=== PATIENT | female | born 1940 | race Caucasian/White ===

== ENCOUNTER 2017-07-27 05:31 | Inpatient (IN) | payer MEDICARE, BC ==
[2017-07-27] MEDS ORDERED: Celecoxib 200 MG Cap PO ONE (06:00)
[2017-07-27] MEDS ORDERED: Acetaminophen 500 MG Tab PO ONE (06:00)
[2017-07-27] MEDS ORDERED: Dextrose 5%-Lactated Ringers 1,000 ML IV SCH (06:30)
[2017-07-27] MEDS ORDERED: Bupivacaine 0.5%/EPINEPHrine 1:200,000 50 ML MDV ONE (06:41)
[2017-07-27] MEDS ORDERED: Meropenem 500 MG SDV ONE (06:41)
[2017-07-27] MEDS ORDERED: Succinylcholine 200 MG/10 ML MDV ONE (07:09)
[2017-07-27] MEDS ORDERED: Dexamethasone 4 MG/ML SDV ONE (07:09)
[2017-07-27] MEDS ORDERED: Propofol 200 MG/20 ML SDV ONE (07:09)
[2017-07-27] MEDS ORDERED: Ondansetron 4 MG/2 ML SDV ONE (07:09)
[2017-07-27] MEDS ORDERED: Neostigmine Methylsulfate 1 MG/ML 5 ML Syringe ONE (07:09)
[2017-07-27] MEDS ORDERED: Rocuronium 50 MG/5 ML Vial ONE (07:09)
[2017-07-27] MEDS ORDERED: Glycopyrrolate 0.2 MG/ML 5 ML MDV ONE (07:09)
[2017-07-27] MEDS ORDERED: ceFAZolin 2 GM in Premix Bag 1 BAG IV ONE ×2 (07:15→07:30)
[2017-07-27] MEDS ORDERED: ePHEDrine 50 MG/ML SDV ONE (08:30)
[2017-07-27] MEDS ORDERED: HYDROmorphone/Normal Saline 15 MG/30 ML PCA IV PRN (08:42)
[2017-07-27] MEDS ORDERED: Naloxone 0.4 MG/ML SDV IV PRN (08:44)
[2017-07-27] MEDS ORDERED: Ketorolac 60 MG/2 ML SDV ONE (09:23)
[2017-07-27] MEDS ORDERED: Ondansetron 4 MG/2 ML SDV IV PRN (10:38)
[2017-07-27] MEDS ORDERED: Acetaminophen/HYDROcodone 325-5 MG Tab PO PRN (10:40)
[2017-07-27] MEDS: Dextrose 5%-Lactated Ringers 1,000 ML IV SCH ×2 (10:56→17:32)
[2017-07-27] MEDS: ceFAZolin 2 GM in Sodium Chloride 0.9% 50 ML IV SCH ×2 (15:12→22:24)
[2017-07-27] MEDS ORDERED: Lactated Ringers 500 ML IV ONE (18:41)
[2017-07-28] MEDS: Dextrose 5%-Lactated Ringers 1,000 ML IV SCH (01:35)
[2017-07-28] MEDS: ceFAZolin 2 GM in Sodium Chloride 0.9% 50 ML IV SCH (06:03)
[2017-07-28] MEDS ORDERED: Dextrose 5%-Lactated Ringers 1,000 ML IV SCH (07:10)
--- NOTE | 2017-07-28 08:52 | DISCH ---
ADMISSION DIAGNOSES: 1. Recurrent umbilical hernia. 2. Recurrent incarcerated incisional hernia. 3. Essential hypertension. 4. Glucose intolerance, prediabetic. 5. Hearing loss, sensorineural. DISCHARGE DIAGNOSES: Repair of recurrent umbilical hernia and recurrent incarcerated incisional hernia with mesh, date 07/27/2017. Surgeon, Moises Butler MD. HISTORY: Chanel Ny is a 77-year-old female with a recurrent umbilical and recurrent incarcerated incisional hernia. After preoperative evaluation and discussion of possible risks and possible complications, she wished to proceed with surgical procedure. HOSPITAL COURSE: Chanel had her surgery on 07/27/2017. She had no surgical complications. On postop day #1, her activity was good. Oral intake adequate. Pain controlled. Vital signs were stable. She was ready to be discharged to home. PHYSICAL EXAMINATION: GENERAL: Chanel Ny is a pleasant 77-year-old female. She is alert and orientated. SKIN: Warm and dry. Color is good. VITAL SIGNS: Height is 5 feet 4 inches. Weight is 144 pounds. TPR 98.8, 78, 16, blood pressure 132/75. HEENT: Negative. NECK: Supple. HEART: Regular rate and rhythm. LUNGS: Clear. ABDOMEN: Reveals a dressing that is dry and intact. Abdominal binder is on. EXTREMITIES: Without peripheral edema. DISPOSITION: Discharged to home. CONDITION: Stable and improving. FOLLOWUP APPOINTMENT: With Alda Moreno PA-C, at [facility] on 08/06/2017 at 9 a.m. DISCHARGE MEDICATIONS: Home medications; Pawling 5/325 mg 1 to 2 q.4 hours p.r.n. pain, #30. She is to resume her home medications of multivitamin 1 daily and triamterene/hydrochlorothiazide 37.5/25 one tablet daily. DISCHARGE DIET: Regular diet as tolerated. ACTIVITY: No lifting greater than 10 pounds for 6 weeks. Driving after discharge, do not drive until 08/02/2017. Must also be off pain meds. Shower/bathing, may shower on 08/06/2017, take off dressing at that time and replace a pressure dressing of folded up washcloth and place over hernia sites and wear abdominal binder over the pressure dressing, do this for 1 month. DISCHARGE INSTRUCTIONS: Notify provider if any fever, swelling, redness, drainage, nausea, or vomiting. Special instructions; use incentive spirometer 10 times every hour while awake.
[2017-07-28] MEDS ORDERED: Hydrochlorothiazide/Triamterene 25-37.5 MG Cap PO SCH (09:00)
[2017-07-28 10:14] VITALS: BP 111/81
--- NOTE | 2017-08-02 08:52 | OR ---
DATE OF PROCEDURE: 07/27/2017 PREOPERATIVE DIAGNOSIS: Recurrent periumbilical hernia. POSTOPERATIVE DIAGNOSES: 1. Recurrent umbilical hernia. 2. Recurrent incarcerated incisional hernia. OPERATIVE PROCEDURE: 1. Diagnostic laparoscopy with: a. Repair of recurrent umbilical hernia with mesh (85706). b. Repair of recurrent incarcerated incisional hernia with mesh ([id number]). ANESTHESIA: General. INDICATION FOR PROCEDURE: This is a 77-year-old presenting with a progressively symptomatic periumbilical hernia. This has been repaired in the past. The plan is to proceed with a diagnostic laparoscopy and laparotomy if necessary, and repair of the hernia with mesh. Potential risks including bleeding, infection, injury to underlying viscera, problems with the hernia recurring or the mesh becoming infected were all reviewed, and the patient wishes to proceed. DETAILS OF THE PROCEDURE: The patient was taken to the operating room and placed in the supine position. After general endotracheal anesthesia was induced, a Bates catheter was inserted and the abdomen prepped and draped. In the left lateral abdomen, a transverse incision was made and the peritoneal cavity entered under direct vision with an Optiview trocar, inflated to 15 mmHg pressure with CO2. No underlying trocar insertion site injuries were seen, upon re-insertion of the camera. Following this, eventually four 5-mm trocars were placed, 2 on the left and 2 on the right side, and the abdomen examined. The patient had 2 hernias, both of which had some sutures in them, indicating previous repairs had been undertaken at those locations. The umbilical hernia was not incarcerated. The incisional hernia, which lay just adjacent to the umbilical hernia, did have incarcerated omentum within it, but it was dissected free with aid of Harmonic scalpel along with external pressure. Once the incarcerated components were eliminated, a small part of each of the sacs was sent to facilitate adherence of the subcutaneous tissue to the mesh. The falciform ligament was then taken down up to over the midportion of the liver, and then a Ventralight ST mesh with the positioning system balloon was selected. A 20.2 cm pyramid lake sized mesh was used. This was soaked in antibiotic-containing saline solution and then rolled up and placed in an intraperitoneal location. A small stab wound over the center of the 2 hernias was then made and the inflation catheter was then grasped and pulled up through the abdominal wall. The balloon was then inflated, thus pushing the mesh up against the abdominal wall. The mesh was then initially affixed with a row of absorbable tacking screws along its outer circumference, and then an additional row of tacks was then placed more centrally around the area of herniation. At this point, the balloon was deflated and withdrawn. Good fixation of the mesh was confirmed in all areas and the 12 mm trocar site was then closed with 0 Vicryl stitch at the fascia level, and upon removal of the trocars, each of the incisions were closed with some 4-0 Vicryl skin stitch. Dressing was applied. The patient was taken to the recovery room in satisfactory condition. Moises Butler MD /[id number]
== END 2017-07-28 13:00 | disposition home or self-care (01) | DRG 354 ==
LOC: JP.SDS 05:31 → JP.MS 05:31 → EDSTATUS 09:00 → JP.MS 09:15
PROVIDERS: ADMIT Surgery; ATTEND Surgery
PROC: 0WUF4JZ Supplement Abdominal Wall with Synthetic Substitute, Percutaneous Endoscopic Approach (ICD-10-PCS; principal; 2017-07-27)
DX: K42.9 Umbilical hernia without obstruction or gangrene (principal); K43.0 Incisional hernia with obstruction, without gangrene; I10 Essential (primary) hypertension; R73.03 Prediabetes; H90.5 Unspecified sensorineural hearing loss; Z79.899 Other long term (current) drug therapy
CPT/HCPCS: 36415; 51798; 80053; 83735; 84100; 85027; 88302; 94762; A9270-GY; C1781; J0330; J0690; J1100; J1170; J1885; J2185; J2405; J2704; J2710; J3010; J7042; J7050; J7120

== ENCOUNTER 2022-03-13 21:33 | Emergency (ER) | payer MEDICARE, BC ==
[2022-03-13 21:50] VITALS: BP 151/92
[2022-03-13 22:42] VITALS: PULSE 60
== END 2022-03-13 22:43 | disposition home or self-care (01) ==
LOC: JP.ED 21:33
DX: N39.0 Urinary tract infection, site not specified (principal); I10 Essential (primary) hypertension
CPT/HCPCS: 81001; 87086; 87186; 99282; 99283

== ENCOUNTER 2023-12-12 11:45 | Emergency (ER) | payer MEDICARE, BC ==
[2023-12-12 12:32] LABS: BASOPHILS ABSOLUTE AUTO 0.06 K/uL (0.00-0.10); BASOPHILS PERCENT AUTO 1.1 % (0.1-1.3); EOSINOPHILS ABSOLUTE AUTO 0.13 K/uL (0.00-0.40); EOSINOPHILS PERCENT AUTO 2.5 % (0.0-5.4); HEMATOCRIT 40.8 % (34.3-46.0); HEMOGLOBIN 13.9 g/dL (11.2-15.5); IMMATURE GRAN ABSOLUTE AUTO 0.03 K/uL (0.00-0.23); IMMATURE GRAN PERCENT AUTO 0.6 % (0.0-0.7); LYMPHOCYTES ABSOLUTE AUTO 1.69 K/uL (0.8-3.3); LYMPHOCYTES PERCENT AUTO 31.9 % (11.4-47.7); MEAN CORPUSCULAR HEMOGLOBIN 29.8 pg (31.6-35.5); MEAN CORPUSCULAR HGB CONC 34.1 g/dL (31.6-35.5); MEAN CORPUSCULAR VOLUME 87.4 fL (81.4-99.0); MONOCYTES ABSOLUTE AUTO 0.82 K/uL (0.20-0.90); MONOCYTES PERCENT AUTO 15.5 % (3.3-12.6); NEUTROPHILS ABSOLUTE AUTO 2.57 K/uL (1.0-7.6); NEUTROPHILS PERCENT AUTO 48.4 % (40.0-78.1); PLATELET COUNT,PLT 197 K/uL (130-375); RED BLOOD CELL COUNT 4.67 M/uL (3.77-5.24); WHITE BLOOD CELL COUNT,WBC 5.3 K/uL (3.2-11.0)
[2023-12-12 12:58] LABS: INR 1.2; PROTHROMBIN TIME 11.6 sec (9.2-10.6)
[2023-12-12 13:06] LABS: ALANINE AMINOTRANSFERASE,ALT 21 U/L (12-78); ALBUMIN 3.5 g/dL (3.4-5.0); ALKALINE PHOSPHATASE 51 U/L (46-116); ASPARTATE AMNIOTRANSFERASE,AST 23 U/L (15-37); BILIRUBIN TOTAL 1.5 mg/dL (0.2-1.0); BLOOD UREA NITROGEN,BUN 18 mg/dL (7-18); CALCIUM 8.8 mg/dL (8.5-10.1); CARBON DIOXIDE,CO2 33 mmol/L (21-32); CHLORIDE,CL 98 mmol/L (100-108); ESTIMATED GFR 55 mL/min (>60); GLUCOSE RANDOM 148 mg/dL (74-106); POTASSIUM,K 3.7 mmol/L (3.6-5.2); SODIUM,NA 137 mmol/L (140-148)
[2023-12-12 13:07] LABS: ANION GAP 9.7 mmol/L (5.0-14.0)
[2023-12-12 13:08] LABS: TROPONIN I HIGH SENSITIVITY 62.6 pg/mL (<=60.3)
[2023-12-12 14:05] VITALS: BP 175/86; PULSE 77
== END 2023-12-12 15:06 | disposition home or self-care (01) ==
LOC: JP.ED 11:45
DX: S00.03XA Contusion of scalp, initial encounter (principal); H66.91 Otitis media, unspecified, right ear; I95.1 Orthostatic hypotension; I10 Essential (primary) hypertension; Z79.899 Other long term (current) drug therapy; W18.30XA Fall on same level, unspecified, initial encounter; Y92.512 Supermarket, store or market as the place of occurrence of the external cause
CPT/HCPCS: 36415; 70450; 71045; 71045-26; 80053; 80307; 84145; 84484; 85025; 85610; 93005; 93010; 99284

== ENCOUNTER 2024-11-05 09:31 | Emergency (ER) | payer MEDICARE, BC ==
[2024-11-05 09:44] VITALS: BP 164/104
[2024-11-05 10:04] LABS: BASOPHILS ABSOLUTE AUTO 0.06 K/uL (0.00-0.10); BASOPHILS PERCENT AUTO 0.9 % (0.1-1.3); EOSINOPHILS ABSOLUTE AUTO 0.05 K/uL (0.00-0.40); EOSINOPHILS PERCENT AUTO 0.8 % (0.0-5.4); HEMATOCRIT 41.2 % (34.3-46.0); HEMOGLOBIN 14.7 g/dL (11.2-15.5); IMMATURE GRAN ABSOLUTE AUTO 0.04 K/uL (0.00-0.23); IMMATURE GRAN PERCENT AUTO 0.6 % (0.0-0.7); LYMPHOCYTES ABSOLUTE AUTO 1.18 K/uL (0.8-3.3); LYMPHOCYTES PERCENT AUTO 18.1 % (11.4-47.7); MEAN CORPUSCULAR HEMOGLOBIN 31.1 pg (31.6-35.5); MEAN CORPUSCULAR HGB CONC 35.7 g/dL (31.6-35.5); MEAN CORPUSCULAR VOLUME 87.3 fL (81.4-99.0); MONOCYTES ABSOLUTE AUTO 0.87 K/uL (0.20-0.90); MONOCYTES PERCENT AUTO 13.3 % (3.3-12.6); NEUTROPHILS ABSOLUTE AUTO 4.32 K/uL (1.0-7.6); NEUTROPHILS PERCENT AUTO 66.3 % (40.0-78.1); PLATELET COUNT,PLT 200 K/uL (130-375); RED BLOOD CELL COUNT 4.72 M/uL (3.77-5.24); WHITE BLOOD CELL COUNT,WBC 6.5 K/uL (3.2-11.0)
[2024-11-05 10:27] LABS: ANION GAP 9.7 mmol/L (5.0-14.0); CALCIUM 9.6 mg/dL (8.5-10.1); CREATININE 1.1 mg/dL (0.6-1.0); EST CRCL DRUG DOSING (CG) 31.55 mL/min; POTASSIUM,K 3.7 mmol/L (3.6-5.2)
[2024-11-05 10:28] LABS: TROPONIN I HIGH SENSITIVITY 80.7 pg/mL (<=60.3)
[2024-11-05] MEDS: Metoprolol Succinate 25 MG Tab.ER PO ONE (12:25)
[2024-11-05 12:26] VITALS: PULSE 93
== END 2024-11-05 12:42 | disposition home or self-care (01) ==
LOC: JP.ED 09:31
DX: I47.10 Supraventricular tachycardia, unspecified (principal); R55 Syncope and collapse; I10 Essential (primary) hypertension; Z90.49 Acquired absence of other specified parts of digestive tract
CPT/HCPCS: 36415; 70450; 72125; 76377; 80048; 84484; 85025; 99285; A9270

== ENCOUNTER 2025-04-09 09:30 | Inpatient (IN) | payer MEDICARE, BC ==
[2025-04-09] MEDS ORDERED: fentaNYL 100 MCG/2 ML SDV ONE (10:05)
[2025-04-09] MEDS ORDERED: Midazolam 1 MG/ML 2 ML SDV ONE (10:05)
[2025-04-09] MEDS ORDERED: Propofol 200 MG/20 ML SDV ONE (10:05)
[2025-04-09] MEDS ORDERED: Bupivacaine 0.5% 50 ML MDV ONE (10:49)
[2025-04-09] MEDS: Lactated Ringers 1,000 ML IV SCH (11:01)
[2025-04-09] MEDS: Nozin Nasal Sanitizer NASBOTH SCH ×2 (11:01→21:05)
[2025-04-09] MEDS: ceFAZolin 2 GM in Premix Bag 1 BAG IV ONE (12:45)
[2025-04-09] MEDS ORDERED: Loratadine 10 MG Tab PO PRN (12:50)
[2025-04-09] MEDS ORDERED: Magnesium Hydroxide 400 MG/5 ML Susp 30 ML Cup PO PRN (12:52)
[2025-04-09] MEDS ORDERED: Morphine 2 MG/ML SYRINGE IV PRN (12:52)
[2025-04-09] MEDS ORDERED: Ondansetron 4 MG/2 ML SDV IVPUSH PRN (12:52)
[2025-04-09] MEDS ORDERED: Docusate Sodium 100 MG Cap PO PRN (12:52)
[2025-04-09] MEDS ORDERED: ePHEDrine 50 MG/ML SDV ONE (13:25)
[2025-04-09] MEDS: Sodium Chloride 0.9% 1,000 ML IV SCH (15:36)
[2025-04-09] MEDS: Acetaminophen 325 MG Tab PO SCH (16:14)
[2025-04-09] MEDS: oxyCODONE 5 MG Tab PO PRN (19:23)
[2025-04-09] MEDS: ceFAZolin 2 GM in Premix Bag 1 BAG IV SCH (21:02)
[2025-04-09] MEDS: Ketotifen 0.025% Ophth Soln 5 ML Bottle EYEBOTH SCH (21:06)
[2025-04-09] MEDS: Metoprolol Succinate 25 MG Tab.ER PO SCH (21:31)
[2025-04-09] MEDS: Sodium Chloride 0.9% 500 ML IV ONE (21:35)
[2025-04-09] MEDS: METOPROLOL SUCCINATE 25 MG PO SCH (22:07)
[2025-04-10 05:58] LABS: HEMATOCRIT 27.5 % (34.3-46.0); HEMOGLOBIN 9.3 g/dL (11.2-15.5); MEAN CORPUSCULAR HEMOGLOBIN 31.1 pg (31.6-35.5); MEAN CORPUSCULAR HGB CONC 33.8 g/dL (31.6-35.5); RED BLOOD CELL COUNT 2.99 M/uL (3.77-5.24); WHITE BLOOD CELL COUNT,WBC 8.9 K/uL (3.2-11.0)
[2025-04-10] MEDS: Levothyroxine 25 MCG Tab PO SCH (07:35)
[2025-04-10] MEDS: Ketorolac 15 MG/ML SDV IVPUSH PRN (09:09)
[2025-04-10] MEDS: Aspirin 325 MG Tab.EC PO SCH (09:16)
[2025-04-10] MEDS: Multivitamins with Iron/Calcium/Folic Acid/Minerals Tab PO SCH (09:16)
[2025-04-10] MEDS: Magnesium Oxide 400 MG Tab PO SCH (09:16)
[2025-04-10] MEDS: Hydrochlorothiazide/Triamterene 25-37.5 Tab PO SCH (10:24)
[2025-04-10] MEDS: Metoprolol Tartrate 5 MG/5 ML SDV IVPUSH ONE (23:50)
[2025-04-11] MEDS: Adenosine 6 MG/2 ML SDV ONE (00:03)
[2025-04-11] MEDS: Metoprolol Tartrate 5 MG/5 ML SDV ONE (00:03)
[2025-04-11] MEDS: Metoprolol Tartrate 25 MG Tab PO ONE (00:04)
[2025-04-11 08:54] LABS: HEMATOCRIT 25.4 % (34.3-46.0); HEMOGLOBIN 8.5 g/dL (11.2-15.5); MEAN CORPUSCULAR HEMOGLOBIN 31.1 pg (31.6-35.5); MEAN CORPUSCULAR HGB CONC 33.5 g/dL (31.6-35.5); RED BLOOD CELL COUNT 2.73 M/uL (3.77-5.24); WHITE BLOOD CELL COUNT,WBC 10.2 K/uL (3.2-11.0)
[2025-04-11 09:09] LABS: ANION GAP 11.9 mmol/L (5.0-14.0); CALCIUM 8.1 mg/dL (8.5-10.1); CREATININE 0.9 mg/dL (0.6-1.0); EST CRCL DRUG DOSING (CG) 36.43 mL/min; MAGNESIUM 1.3 mg/dL (1.8-2.4); POTASSIUM,K 3.9 mmol/L (3.6-5.2)
[2025-04-11] MEDS ORDERED: Sodium Chloride 0.9% 1,000 ML IV SCH (12:00)
[2025-04-11] MEDS: Magnesium Oxide 400 MG Tab PO SCH (12:45)
[2025-04-11] MEDS: Magnesium Sulfate 2 GM/50 mL 2 GM in Premix Bag 1 BAG IV SCH (12:46)
[2025-04-12 12:32] VITALS: BP 97/79; PULSE 64
== END 2025-04-12 13:00 | disposition home health service (06) | DRG 470 ==
LOC: EDSTATUS 09:30 → JP.SDSSCHI 10:24 → JP.MS 12:52
PROVIDERS: ADMIT Specialist; ATTEND Specialist
PROC: 0SRB0JA Replacement of Left Hip Joint with Synthetic Substitute, Uncemented, Open Approach (ICD-10-PCS; principal; 2025-04-09 11:00)
DX: M16.12 Unilateral primary osteoarthritis, left hip (principal); I47.10 Supraventricular tachycardia, unspecified; I10 Essential (primary) hypertension; E83.42 Hypomagnesemia; I48.0 Paroxysmal atrial fibrillation; I95.9 Hypotension, unspecified; H90.5 Unspecified sensorineural hearing loss; Z98.51 Tubal ligation status; Z90.49 Acquired absence of other specified parts of digestive tract; Z98.890 Other specified postprocedural states; Z79.899 Other long term (current) drug therapy
CPT/HCPCS: 01214-QZ; 36415; 72170; 72170-26; 80048; 83735; 85027; 97110-GP; 97116-GP; 97161-GP; 97165-GO; 97530-GP; 97535-GO; 99232; A9270-GY; C1713; C1776; J0665; J0690; J1885; J2250; J2704; J3010; J3475; J3490; J7030; J7040; J7120

== ENCOUNTER 2025-04-29 21:35 | Emergency (ER) | payer MEDICARE, BC ==
[2025-04-29] MEDS ORDERED: Naloxone 0.4 MG/ML SDV IVPUSH PRN (21:40)
[2025-04-29] MEDS: HYDROmorphone 0.5 MG/0.5 ML Syringe IVPUSH ONE (21:48)
[2025-04-29 22:40] VITALS: BP 116/87
[2025-04-29] MEDS: Metoprolol Tartrate 5 MG/5 ML SDV IVPUSH ONE (22:44)
[2025-04-29 22:45] VITALS: PULSE 155
[2025-04-29 22:57] LABS: BASOPHILS ABSOLUTE AUTO 0.06 K/uL (0.00-0.10); BASOPHILS PERCENT AUTO 0.6 % (0.1-1.3); EOSINOPHILS PERCENT AUTO 0.2 % (0.0-5.4); HEMOGLOBIN 11.4 g/dL (11.2-15.5); IMMATURE GRAN ABSOLUTE AUTO 0.09 K/uL (0.00-0.23); IMMATURE GRAN PERCENT AUTO 0.9 % (0.0-0.7); LYMPHOCYTES ABSOLUTE AUTO 0.76 K/uL (0.8-3.3); LYMPHOCYTES PERCENT AUTO 7.9 % (11.4-47.7); MEAN CORPUSCULAR HGB CONC 33.5 g/dL (31.6-35.5); MEAN CORPUSCULAR VOLUME 95.5 fL (81.4-99.0); MONOCYTES ABSOLUTE AUTO 1.43 K/uL (0.20-0.90); NEUTROPHILS PERCENT AUTO 75.4 % (40.0-78.1); PLATELET COUNT,PLT 331 K/uL (130-375); RED BLOOD CELL COUNT 3.56 M/uL (3.77-5.24); WHITE BLOOD CELL COUNT,WBC 9.6 K/uL (3.2-11.0)
[2025-04-29 23:03] LABS: EOSINOPHILS ABSOLUTE AUTO 0.02 K/uL (0.00-0.40)
[2025-04-29] MEDS ORDERED: Propofol 200 MG/20 ML SDV ONE (23:08)
[2025-04-29 23:12] LABS: ANION GAP 10.3 mmol/L (5.0-14.0); CALCIUM 9.6 mg/dL (8.5-10.1); CREATININE 0.9 mg/dL (0.6-1.0); EST CRCL DRUG DOSING (CG) 36.43 mL/min; POTASSIUM,K 4.3 mmol/L (3.6-5.2)
== END 2025-04-29 23:55 | disposition home or self-care (01) ==
LOC: JP.ED 21:35
DX: S73.005A Unspecified dislocation of left hip, initial encounter (principal); I10 Essential (primary) hypertension; E03.9 Hypothyroidism, unspecified; Z90.49 Acquired absence of other specified parts of digestive tract; Z79.899 Other long term (current) drug therapy; Z79.82 Long term (current) use of aspirin; Z79.890 Hormone replacement therapy; X50.9XXA Other and unspecified overexertion or strenuous movements or postures, initial encounter
CPT/HCPCS: 01200; 36415; 73502; 80048; 85025; 96374; 96375; 99284; J2704; J3490

== ENCOUNTER 2025-05-02 12:44 | Observation (INO) | payer MEDICARE, BC ==
[2025-05-02] MEDS ORDERED: Acetaminophen 325 MG Tab PO PRN (13:29)
[2025-05-02] MEDS ORDERED: Acetaminophen/HYDROcodone 325-5 MG Tab PO PRN (13:29)
[2025-05-02] MEDS ORDERED: Propofol 200 MG/20 ML SDV ONE (13:31)
[2025-05-02] MEDS ORDERED: Loratadine 10 MG Tab PO PRN (16:26)
[2025-05-02] MEDS: Metoprolol Succinate 25 MG Tab.ER PO SCH (20:05)
[2025-05-02] MEDS: Aspirin 325 MG Tab.EC PO SCH (20:06)
[2025-05-03] MEDS: Levothyroxine 25 MCG Tab PO SCH (07:10)
[2025-05-03] MEDS: Magnesium Oxide 400 MG Tab PO SCH (08:34)
[2025-05-03] MEDS: Hydrochlorothiazide/Triamterene 25-37.5 Tab (PTOM) PO SCH (08:34)
[2025-05-03] MEDS: Multivitamins with Iron/Calcium/Folic Acid/Minerals Tab PO SCH (08:34)
[2025-05-03] MEDS ORDERED: MULTIVITAMIN PO SCH (09:00)
[2025-05-03] MEDS ORDERED: Non-Formulary Medication 1 Each (Magnesium [Magnesium] 250 MG Tablet) PO SCH (09:00)
[2025-05-03 11:32] VITALS: BP 136/75; PULSE 79
[2025-05-03] MEDS ORDERED: Metoprolol Succinate 25 MG Tab.ER (PTOM) PO SCH (21:00)
[2025-05-04] MEDS ORDERED: LEVOTHYROXINE 25 MCG PO SCH (07:30)
== END 2025-05-03 13:56 ==
LOC: JP.ED 12:44 → JP.MS 13:22
PROVIDERS: ADMIT Physician Assistant; ATTEND Physician Assistant
DX: T84.021A Dislocation of internal left hip prosthesis, initial encounter (principal); I10 Essential (primary) hypertension; E03.9 Hypothyroidism, unspecified; Z79.890 Hormone replacement therapy; Z79.899 Other long term (current) drug therapy; Y83.8 Other surgical procedures as the cause of abnormal reaction of the patient, or of later complication, without mention of misadventure at the time of the procedure
CPT/HCPCS: 27266; 73501; 73502; 97161; 99284; A9270; J2704; G0378

== ENCOUNTER 2025-06-10 17:26 | Emergency (ER) | payer MEDICARE, BC ==
[2025-06-10 18:03] LABS: BASOPHILS ABSOLUTE AUTO 0.08 K/uL (0.00-0.10); BASOPHILS PERCENT AUTO 1.1 % (0.1-1.3); EOSINOPHILS ABSOLUTE AUTO 0.14 K/uL (0.00-0.40); EOSINOPHILS PERCENT AUTO 1.9 % (0.0-5.4); IMMATURE GRAN ABSOLUTE AUTO 0.03 K/uL (0.00-0.23); IMMATURE GRAN PERCENT AUTO 0.4 % (0.0-0.7); LYMPHOCYTES ABSOLUTE AUTO 2.42 K/uL (0.8-3.3); LYMPHOCYTES PERCENT AUTO 32.5 % (11.4-47.7); MONOCYTES ABSOLUTE AUTO 1.19 K/uL (0.20-0.90); MONOCYTES PERCENT AUTO 16.0 % (3.3-12.6); NEUTROPHILS ABSOLUTE AUTO 3.58 K/uL (1.0-7.6); NEUTROPHILS PERCENT AUTO 48.1 % (40.0-78.1); PLATELET COUNT,PLT 185 K/uL (130-375); RED BLOOD CELL COUNT 4.47 M/uL (3.77-5.24); WHITE BLOOD CELL COUNT,WBC 7.4 K/uL (3.2-11.0)
[2025-06-10] MEDS: fentaNYL 50 MCG/ML SDV IVPUSH ONE (18:13)
[2025-06-10 18:27] LABS: BLOOD UREA NITROGEN,BUN 19.0 mg/dL (7-18); CARBON DIOXIDE,CO2 30.0 mmol/L (21-32); CHLORIDE,CL 96.0 mmol/L (100-108); CREATININE 0.9 mg/dL (0.6-1.0); EST CRCL DRUG DOSING (CG) 36.43 mL/min; ESTIMATED GFR 62.0 mL/min (>60); GLUCOSE RANDOM 100.0 mg/dL (74-106); POTASSIUM,K 3.8 mmol/L (3.6-5.2); SODIUM,NA 133.0 mmol/L (140-148)
[2025-06-10] MEDS ORDERED: Propofol 200 MG/20 ML SDV ONE (18:36)
[2025-06-10 18:47] LABS: TROPONIN I HIGH SENSITIVITY 86.6 pg/mL (<=60.3)
[2025-06-10] MEDS: Magnesium Sulfate 2 GM/50 mL 2 GM in Premix Bag 1 BAG IV ONE (18:50)
[2025-06-10] MEDS: Potassium Chloride 20 MEQ Tab.ER PO ONE (20:22)
[2025-06-10 21:43] VITALS: BP 168/96; PULSE 71
== END 2025-06-10 23:56 ==
LOC: JP.ED 17:26
DX: T84.021A Dislocation of internal left hip prosthesis, initial encounter (principal); I47.10 Supraventricular tachycardia, unspecified; E83.42 Hypomagnesemia; R79.89 Other specified abnormal findings of blood chemistry; I10 Essential (primary) hypertension; E03.9 Hypothyroidism, unspecified; Z79.890 Hormone replacement therapy; Z79.899 Other long term (current) drug therapy; Z90.49 Acquired absence of other specified parts of digestive tract; X50.1XXA Overexertion from prolonged static or awkward postures, initial encounter
CPT/HCPCS: 01200; 27265; 36415; 73501; 80048; 83735; 84484; 85025; 93005; 93010; 96365; 96366; 96375; 99285; A9270; J0153; J2704; J3010; J3475

== ENCOUNTER 2025-07-07 04:44 | Emergency (ER) | payer MEDICARE, BC ==
[2025-07-07] MEDS ORDERED: Sodium Chloride 0.9% 10 ML Syringe FLUSH PRN (05:01)
[2025-07-07 05:13] LABS: BASOPHILS ABSOLUTE AUTO 0.05 K/uL (0.00-0.10); BASOPHILS PERCENT AUTO 1.0 % (0.1-1.3); EOSINOPHILS ABSOLUTE AUTO 0.11 K/uL (0.00-0.40); EOSINOPHILS PERCENT AUTO 2.1 % (0.0-5.4); IMMATURE GRAN PERCENT AUTO 0.4 % (0.0-0.7); LYMPHOCYTES ABSOLUTE AUTO 2.40 K/uL (0.8-3.3); LYMPHOCYTES PERCENT AUTO 45.8 % (11.4-47.7); MONOCYTES ABSOLUTE AUTO 0.95 K/uL (0.20-0.90); MONOCYTES PERCENT AUTO 18.1 % (3.3-12.6); NEUTROPHILS ABSOLUTE AUTO 1.71 K/uL (1.0-7.6); NEUTROPHILS PERCENT AUTO 32.6 % (40.0-78.1); PLATELET COUNT,PLT 178 K/uL (130-375); RED BLOOD CELL COUNT 4.24 M/uL (3.77-5.24); WHITE BLOOD CELL COUNT,WBC 5.2 K/uL (3.2-11.0)
[2025-07-07] MEDS: Ondansetron 4 MG/2 ML SDV IVPUSH PRN (05:17)
[2025-07-07 05:23] LABS: IMMATURE GRAN ABSOLUTE AUTO 0.02 K/uL (0.00-0.23)
[2025-07-07 05:41] LABS: A/G RATIO 1.1 (1.2-2.2); ALANINE AMINOTRANSFERASE,ALT 25 U/L (12-78); ASPARTATE AMNIOTRANSFERASE,AST 32 U/L (15-37); BILIRUBIN TOTAL 1.0 mg/dL (0.2-1.0); BLOOD UREA NITROGEN,BUN 22 mg/dL (7-18); CARBON DIOXIDE,CO2 27 mmol/L (21-32); CHLORIDE,CL 98 mmol/L (100-108); CREATININE 0.7 mg/dL (0.6-1.0); ESTIMATED GFR 84 mL/min (>60); GLUCOSE RANDOM 106 mg/dL (74-106); POTASSIUM,K 3.3 mmol/L (3.6-5.2); PROTEIN TOTAL,TP 6.3 g/dL (6.4-8.2); SODIUM,NA 134 mmol/L (140-148); TSH ULTRASENSITIVE 8.248 uIU/mL (0.358-3.740)
[2025-07-07] MEDS ORDERED: Propofol 200 MG/20 ML SDV ONE (06:00)
[2025-07-07 06:06] LABS: PHOSPHORUS 2.9 mg/dL (2.5-4.9)
[2025-07-07 06:13] LABS: TROPONIN I HIGH SENSITIVITY 64.9 pg/mL (<=60.3)
[2025-07-07] MEDS: Magnesium Sulfate 2 GM/50 mL 2 GM in Premix Bag 1 BAG IV SCH (07:12)
[2025-07-07] MEDS: Ondansetron 4 MG/2 ML SDV ONE (07:43)
[2025-07-07 09:38] VITALS: BP 107/59; PULSE 56
== END 2025-07-07 11:21 | disposition home or self-care (01) ==
LOC: JP.ED 04:44
DX: T84.021A Dislocation of internal left hip prosthesis, initial encounter (principal); I10 Essential (primary) hypertension; Z79.890 Hormone replacement therapy; Z79.899 Other long term (current) drug therapy; Z90.49 Acquired absence of other specified parts of digestive tract
CPT/HCPCS: 01200; 36415; 73501; 80053; 83735; 84100; 84443; 84484; 85025; 93005; 93010; 96365; 96366; 96375; 99284; 99285; A9270; E0617; J0153; J2405; J2704; J3475; J7030; J1171

== ENCOUNTER 2025-07-18 08:22 | Day surgery (SDC) | payer MEDICARE, BC ==
[2025-07-18 08:53] LABS: PLATELET COUNT,PLT 229.0 K/uL (130-375); RED BLOOD CELL COUNT 4.81 M/uL (3.77-5.24); WHITE BLOOD CELL COUNT,WBC 5.1 K/uL (3.2-11.0)
[2025-07-18 09:09] LABS: A/G RATIO 1.1 (1.2-2.2); ALANINE AMINOTRANSFERASE,ALT 26 U/L (12-78); ASPARTATE AMNIOTRANSFERASE,AST 28 U/L (15-37); BILIRUBIN TOTAL 1.5 mg/dL (0.2-1.0); BLOOD UREA NITROGEN,BUN 16 mg/dL (7-18); CARBON DIOXIDE,CO2 34 mmol/L (21-32); CHLORIDE,CL 93 mmol/L (100-108); CREATININE 0.9 mg/dL (0.6-1.0); ESTIMATED GFR 62 mL/min (>60); GLUCOSE RANDOM 96 mg/dL (74-106); POTASSIUM,K 3.7 mmol/L (3.6-5.2); PROTEIN TOTAL,TP 8.0 g/dL (6.4-8.2); SODIUM,NA 130 mmol/L (140-148)
[2025-07-18] MEDS: Lactated Ringers 1,000 ML IV SCH (09:26)
[2025-07-18] MEDS: Nozin Nasal Sanitizer NASBOTH SCH ×2 (09:27→21:14)
[2025-07-18] MEDS ORDERED: fentaNYL 100 MCG/2 ML SDV ONE (11:53)
[2025-07-18] MEDS ORDERED: Propofol 200 MG/20 ML SDV ONE (11:53)
[2025-07-18] MEDS ORDERED: Midazolam 1 MG/ML 2 ML SDV ONE (11:54)
[2025-07-18] MEDS ORDERED: Ondansetron 4 MG/2 ML SDV IVPUSH PRN (12:21)
[2025-07-18] MEDS ORDERED: Magnesium Hydroxide 400 MG/5 ML Susp 30 ML Cup PO PRN (12:21)
[2025-07-18] MEDS ORDERED: ePHEDrine 50 MG/ML SDV ONE (12:28)
[2025-07-18] MEDS ORDERED: Ketorolac 15 MG/ML SDV IVPUSH PRN (15:00)
[2025-07-19 05:23] LABS: PLATELET COUNT,PLT 161.0 K/uL (130-375); RED BLOOD CELL COUNT 3.66 M/uL (3.77-5.24); WHITE BLOOD CELL COUNT,WBC 8.0 K/uL (3.2-11.0)
[2025-07-19] MEDS: Aspirin 325 MG Tab.EC PO SCH (08:53)
[2025-07-19] MEDS: Multivitamins with Iron/Calcium/Folic Acid/Minerals Tab PO SCH (08:54)
[2025-07-19] MEDS: Hydrochlorothiazide/Triamterene 25-37.5 Tab PO SCH (08:56)
[2025-07-19 17:03] VITALS: BP 125/70; PULSE 96
== END 2025-07-19 17:54 | disposition home or self-care (01) ==
LOC: JP.SDS 08:22 → JP.MS 12:21 → JP.SDS 07-19 17:54
PROVIDERS: ATTEND Specialist
DX: M24.452 Recurrent dislocation, left hip (principal); I10 Essential (primary) hypertension; E03.9 Hypothyroidism, unspecified; Z79.890 Hormone replacement therapy; Z79.899 Other long term (current) drug therapy
CPT/HCPCS: 27137; 36415; 72170; 80053; 85027; 97110; 97161; 97165; 97530; 97535; A9270; C1713; C1776; J0690; J2250; J2704; J3010; J7030; J7120; 01215-QZ

== ENCOUNTER 2025-07-23 10:02 | Emergency (ER) | payer MEDICARE, BC ==
[2025-07-23 10:24] LABS: BASOPHILS ABSOLUTE AUTO 0.06 K/uL (0.00-0.10); BASOPHILS PERCENT AUTO 0.8 % (0.1-1.3); EOSINOPHILS ABSOLUTE AUTO 0.16 K/uL (0.00-0.40); EOSINOPHILS PERCENT AUTO 2.1 % (0.0-5.4); IMMATURE GRAN ABSOLUTE AUTO 0.07 K/uL (0.00-0.23); IMMATURE GRAN PERCENT AUTO 0.9 % (0.0-0.7); LYMPHOCYTES ABSOLUTE AUTO 2.03 K/uL (0.8-3.3); LYMPHOCYTES PERCENT AUTO 26.9 % (11.4-47.7); MONOCYTES ABSOLUTE AUTO 1.42 K/uL (0.20-0.90); MONOCYTES PERCENT AUTO 18.8 % (3.3-12.6); NEUTROPHILS ABSOLUTE AUTO 3.82 K/uL (1.0-7.6); NEUTROPHILS PERCENT AUTO 50.5 % (40.0-78.1); PLATELET COUNT,PLT 257 K/uL (130-375); RED BLOOD CELL COUNT 3.35 M/uL (3.77-5.24); WHITE BLOOD CELL COUNT,WBC 7.6 K/uL (3.2-11.0)
[2025-07-23 10:39] LABS: APPEARANCE,URINE CLEAR (CLEAR); GLUCOSE,URINE NEGATIVE (NEGATIVE); OCCULT BLOOD,URINE TRACE-INTACT (NEGATIVE)
[2025-07-23 10:43] LABS: INR 1.0
[2025-07-23 10:46] LABS: SQUAMOUS EPITHELIAL CELLS,UR RARE /HPF; UROTHELIAL CELLS,URINE NOT SEEN /HPF
[2025-07-23 10:51] LABS: A/G RATIO 1.0 (1.2-2.2); ALANINE AMINOTRANSFERASE,ALT 17 U/L (12-78); ASPARTATE AMNIOTRANSFERASE,AST 28 U/L (15-37); BILIRUBIN TOTAL 2.3 mg/dL (0.2-1.0); BLOOD UREA NITROGEN,BUN 14 mg/dL (7-18); CARBON DIOXIDE,CO2 30 mmol/L (21-32); CHLORIDE,CL 92 mmol/L (100-108); CREATININE 0.7 mg/dL (0.6-1.0); EST CRCL DRUG DOSING (CG) 46.84 mL/min; ESTIMATED GFR 84 mL/min (>60); GLUCOSE RANDOM 117 mg/dL (74-106); POTASSIUM,K 3.8 mmol/L (3.6-5.2); PROTEIN TOTAL,TP 7.0 g/dL (6.4-8.2); SODIUM,NA 130 mmol/L (140-148)
[2025-07-23 12:51] VITALS: BP 116/62; PULSE 59
== END 2025-07-23 13:18 | disposition home or self-care (01) ==
LOC: JP.ED 10:02
DX: I47.10 Supraventricular tachycardia, unspecified (principal); I10 Essential (primary) hypertension; E03.9 Hypothyroidism, unspecified; Z79.899 Other long term (current) drug therapy; Z79.890 Hormone replacement therapy
CPT/HCPCS: 36415; 80053; 81001; 84484; 85025; 85610; 93005; 99284

== ENCOUNTER 2025-10-09 07:53 | Emergency (ER) | payer MEDICARE, BC ==
[2025-10-09 08:12] LABS: BASOPHILS ABSOLUTE AUTO 0.05 K/uL (0.00-0.10); BASOPHILS PERCENT AUTO 0.9 % (0.1-1.3); EOSINOPHILS ABSOLUTE AUTO 0.03 K/uL (0.00-0.40); EOSINOPHILS PERCENT AUTO 0.6 % (0.0-5.4); IMMATURE GRAN PERCENT AUTO 0.4 % (0.0-0.7); LYMPHOCYTES ABSOLUTE AUTO 1.38 K/uL (0.8-3.3); LYMPHOCYTES PERCENT AUTO 26.0 % (11.4-47.7); MONOCYTES ABSOLUTE AUTO 0.53 K/uL (0.20-0.90); MONOCYTES PERCENT AUTO 10.0 % (3.3-12.6); NEUTROPHILS ABSOLUTE AUTO 3.29 K/uL (1.0-7.6); NEUTROPHILS PERCENT AUTO 62.1 % (40.0-78.1); PLATELET COUNT,PLT 220 K/uL (130-375); RED BLOOD CELL COUNT 5.38 M/uL (3.77-5.24); WHITE BLOOD CELL COUNT,WBC 5.3 K/uL (3.2-11.0)
[2025-10-09 08:13] LABS: IMMATURE GRAN ABSOLUTE AUTO 0.02 K/uL (0.00-0.23)
[2025-10-09] MEDS: Sodium Chloride 0.9% 10 ML Syringe FLUSH ONE (08:27)
[2025-10-09 08:28] LABS: INR 1.2
[2025-10-09] MEDS: Iopamidol 755 Mg/ML 100 ML Bottle IV SCH (08:28)
[2025-10-09] MEDS ORDERED: Iopamidol 755 Mg/ML 100 ML Bottle IV SCH (08:30)
[2025-10-09 08:32] LABS: ALANINE AMINOTRANSFERASE,ALT 24 U/L (12-78); ASPARTATE AMNIOTRANSFERASE,AST 29 U/L (15-37); BILIRUBIN TOTAL 1.6 mg/dL (0.2-1.0); BLOOD UREA NITROGEN,BUN 20 mg/dL (7-18); CARBON DIOXIDE,CO2 31 mmol/L (21-32); CHLORIDE,CL 94 mmol/L (100-108); CREATININE 0.8 mg/dL (0.6-1.0); ESTIMATED GFR 71 mL/min (>60); GLUCOSE RANDOM 103 mg/dL (74-106); POTASSIUM,K 3.5 mmol/L (3.6-5.2); PROTEIN TOTAL,TP 8.2 g/dL (6.4-8.2); SODIUM,NA 133 mmol/L (140-148)
[2025-10-09 08:33] LABS: A/G RATIO 1.1 (1.2-2.2)
[2025-10-09 08:55] LABS: APPEARANCE,URINE CLEAR (CLEAR); GLUCOSE,URINE NEGATIVE (NEGATIVE); OCCULT BLOOD,URINE SMALL (NEGATIVE)
[2025-10-09 09:03] LABS: SQUAMOUS EPITHELIAL CELLS,UR NOT SEEN /HPF
[2025-10-09] MEDS ORDERED: Labetalol 100 MG/20 ML MDV IV ONE (11:28)
[2025-10-09 13:33] VITALS: BP 171/84; PULSE 64
== END 2025-10-09 13:34 ==
LOC: JP.ED 07:53
DX: R41.82 Altered mental status, unspecified (principal); I10 Essential (primary) hypertension; E03.9 Hypothyroidism, unspecified; M19.90 Unspecified osteoarthritis, unspecified site; Z79.899 Other long term (current) drug therapy; Z79.890 Hormone replacement therapy; Z90.49 Acquired absence of other specified parts of digestive tract
CPT/HCPCS: 36415; 70450; 70450-26; 70496; 70496-26; 70498; 70498-26; 80053; 81001; 85025; 85610; 85651; 86140; 93005; 96374; 99285; 99285-25; J1920; Q9967